=== PATIENT | female | born 1990 | race Caucasian/White ===

== ENCOUNTER 2022-04-09 19:05 | Inpatient (IN) ==
[2022-04-09] MEDS ORDERED: Lactated Ringers 1000 ml BAG 1,000 ML IV ONE (19:56)
[2022-04-09] MEDS ORDERED: Buffered Lidocaine 1% SYRIN 1 ml INTRADERM ONE (19:56)
[2022-04-09] MEDS ORDERED: Lactated Ringers 1000 ml BAG 1,000 ML IV SCH (20:00)
[2022-04-09 20:48] LABS: Urine Benzodiazepine Screen None Detected (None Detect); Urine Cannabinoids Screen None Detected (None Detect); Urine Opiates Screen None Detected (None Detect)
[2022-04-09 20:55] LABS: ABS Lymphocytes 1.3 10^3/ul (1.0-4.8); ABS Monocytes 0.7 10^3/ul (0-0.8); ABS Neutrophils 12.4 10^3/ul (1.5-7.7); Eosinophil % 0.3 %; Hematocrit 40 % (35-47); Hemoglobin 13.4 g/dL (12.0-16.0); Lymphocyte % 8.8 %; Mean Corpuscular HGB Conc 33 g/dL (31-36); Mean Corpuscular Hemoglobin 31 pg (27-31); Mean Corpuscular Volume 93 fL (80-97); Platelet Count 96 10^3/uL (150-450); Red Blood Count 4.29 10^6 /uL (3.70-4.87); Red Cell Distribution Width 13 % (10-15); White Blood Count 14.4 10^3/uL (3.5-10.8)
[2022-04-09] MEDS ORDERED: OBEPIDURAL (200 ML) 0 ML EPIDURAL ONE (22:23)
[2022-04-09] MEDS ORDERED: Lidocaine 1.5% EPI 1:200,000 30 ML SDV ONE (22:36)
[2022-04-09] MEDS ORDERED: fentaNYL 100 mcg/2 ml 50 MCG/ML VIAL IV SLOW PU PRN (22:56)
[2022-04-10] MEDS ORDERED: Oxytocin in LR 20,000 MILLI.UNIT/1,000 ML BAG IV ONE (00:39)
[2022-04-10] MEDS ORDERED: Witch Hazel PAD JAR TOPICAL PRN (01:37)
[2022-04-10] MEDS ORDERED: Glycerin ADULT 2.4 gm SUPP PR PRN (01:37)
[2022-04-10] MEDS ORDERED: Oxytocin in LR 20,000 MILLI.UNIT/1,000 ML BAG IV SCH (01:45)
[2022-04-10] MEDS: Dibucaine 1% OINT 28.35 GM TUBE PR PRN (02:59)
[2022-04-11 06:31] LABS: Hematocrit 36 % (35-47); Hemoglobin 11.9 g/dL (12.0-16.0); Mean Corpuscular HGB Conc 33 g/dL (31-36); Mean Corpuscular Hemoglobin 31 pg (27-31); Mean Corpuscular Volume 94 fL (80-97); Red Blood Count 3.84 10^6 /uL (3.70-4.87); Red Cell Distribution Width 14 % (10-15); White Blood Count 10.7 10^3/uL (3.5-10.8)
[2022-04-11 08:19] LABS: ABS Basophils 0.1 10^3/ul (0-0.2); ABS Eosinophils 0.2 10^3/ul (0-0.6); ABS Monocytes 0.6 10^3/ul (0-0.8); ABS Neutrophils 7.8 10^3/ul (1.5-7.7); Eosinophil % 1.5 %; Lymphocyte % 18.9 %; Mean Platelet Volume 12.2 fL (7.4-10.4); Platelet Count 91 10^3/uL (150-450)
[2022-04-11 08:36] VITALS: BP 105/62
[2022-04-11] MEDS: Dibucaine 1% OINT 28.35 GM TUBE PR PRN (11:45)
== END 2022-04-11 13:41 | disposition home or self-care (01) | DRG 806 ==
LOC: MCHOBOUT 19:05 → MCHOB 19:58
PROVIDERS: ADMIT Midwife; ATTEND Midwife